=== PATIENT | female | born 1940 | race Caucasian/White ===

== ENCOUNTER 2017-02-23 10:54 | Emergency (ER) | payer BC ==
[2017-02-23] MEDS ORDERED: Amoxicillin/Clavulanate TAB* 875 MG PO ONE (11:16)
[2017-02-23] MEDS ORDERED: Tetan/Diph/Pertus SYR(Tdap)* 0.5 ML SYR(BOOSTRIX) use SYR IM ONE (11:16)
[2017-02-23 11:23] VITALS: BP 187/76
--- NOTE | 2017-02-23 11:35 | UC ---
Bite Injury/Animal HPI - HPI Summary HPI Summary: CAT BIT RIGHT HAND YESTERDAY. SWELLING AND REDNESS BEGINNING TO DEVELOP. LAST TETANUS SHOT >5YRS AGO. - History of Current Complaint Stated Complaint: CAT BITE - RIGHT HAND Time Seen by Provider: 02/23/17 11:10 Hx Obtained From: Patient Severity Currently: Mild Severity Initially: Mild Onset/Duration: Sudden Onset, Lasting Hours Type of Bite: Pet Has Animal Been Immunized?: Yes Character: Puncture Aggravating Factor(s): Nothing Alleviating Factor(s): Nothing Associated Signs And Symptoms: Positive: Erythema, Swelling Hx of Bite: Provoked by: - PATIENT Animal Available for Observation: Yes Animal Control Notified: Yes - Risk Factors Infection/Sepsis Risk Factors: Negative - Allergies/Home Medications Allergies/Adverse Reactions: Allergies Allergy/AdvReac Type Severity Reaction Status Date / Time No Known Allergies Allergy Verified 02/23/17 11:18 PMH/Surg Hx/FS Hx/Imm Hx Previously Healthy: Yes - Surgical History Surgical History: Yes Surgery Procedure, Year, and Place: tonsillectomy - Family History Known Family History: Positive: Hypertension Negative: Blood Disorder - Social History Occupation: Retired Lives: With Family Alcohol Use: None Substance Use Type: None Smoking Status (MU): Never Smoked Tobacco Review of Systems Constitutional: Negative Skin: Rash Eyes: Negative ENT: Negative Respiratory: Negative Cardiovascular: Negative Gastrointestinal: Negative Genitourinary: Negative Motor: Negative Neurovascular: Negative Musculoskeletal: Negative Neurological: Negative Psychological: Negative Is Patient Immunocompromised?: No All Other Systems Reviewed And Are Negative: Yes Physical Exam Triage Information Reviewed: Yes Appearance: Well-Appearing, No Pain Distress, Well-Nourished Vital Signs: Initial Vital Signs Temp 98.5 F 02/23/17 11:18 Pulse 85 02/23/17 11:18 Resp 18 02/23/17 11:18 BP 187/76 02/23/17 11:18 Pulse Ox 99 02/23/17 11:18 Vital Signs Reviewed: Yes Eye Exam: Normal ENT Exam: Normal Dental Exam: Normal Neck exam: Normal Neck: Positive: Supple, Nontender, No Lymphadenopathy Respiratory Exam: Normal Respiratory: Positive: Chest non-tender, Lungs clear, Normal breath sounds, No respiratory distress Cardiovascular Exam: Normal Cardiovascular: Positive: RRR, No Murmur Abdominal Exam: Normal Musculoskeletal Exam: Normal Neurological Exam: Normal Psychological Exam: Normal Skin: Positive: rashes, Other - ERYTHEMA RIGHT HAND Bite Injury Course/Dx - Differential Dx/Diagnosis Differential Diagnosis/HQI/PQRI: Joint Space Infection, Superficial Infection, Deep Space Infection Provider Diagnoses: CAT BITE RIGHT HAND, CELLULITIS Discharge - Discharge Plan Condition: Stable Disposition: HOME Prescriptions: Amoxicillin/Clavulanate TAB* [Augmentin TAB 875*] 875 mg PO BID #20 tab Patient Education Materials: Animal Bite (ED), Cellulitis (ED) Referrals: [facility] [place] [Outside]
== END 2017-02-23 11:31 | disposition home or self-care (01) ==
LOC: UCCORT 10:54
DX: S61.451A Open bite of right hand, initial encounter (principal); L03.113 Cellulitis of right upper limb; R03.0 Elevated blood-pressure reading, without diagnosis of hypertension; W55.01XA Bitten by cat, initial encounter
CPT/HCPCS: 90471; 90715; 99202; A9270-GY; G0463